=== PATIENT | female | born 1990 | race African-American/Black ===

== ENCOUNTER 2017-10-16 06:33 | Inpatient (IN) | payer OTHER ==
[2017-10-16] MEDS ORDERED: OXYTOCIN 20 UNITS in 0.9% NS 40 UNIT/2,000 ML INFUS.BAG IV ONE (07:51)
[2017-10-16] MEDS ORDERED: CLINDAMYCIN PHOSPHATE 600 MG/4 ML VIAL ONE (07:51)
[2017-10-16] MEDS ORDERED: morphine SULFATE/Preservative Free 0.5 MG/ML (1cc Syringe) ONE (07:55)
[2017-10-16] MEDS ORDERED: DEXAMETHASONE SOD PHOSPHATE 4 MG/1 ML VIAL ONE (07:55)
[2017-10-16] MEDS ORDERED: ePHEDrine SULFATE 50 MG/1 ML AMPULE ONE (07:55)
[2017-10-16] MEDS ORDERED: ELECTROLYTE-148 SOLN 500 ML IV ONE (08:00)
[2017-10-16 08:05] VITALS: BMI 33.8
--- NOTE | 2017-10-16 08:18 | HP ---
Past Medical History - Primary Care Physician PCP:: Verenice Sumner - Admission Chief Complaint: 27yo P0101 @ 38.2wks by first trimester sonogram with Chronic HTN and hx of abruption for repeat c/section History of Present Illness: Problem list: 1. Chronic HTN - off meds in , non compliant with recommended ASA, was on HCTZ/Lisinopril early in 2. Prior c/section - h/o abruption @ 26.6wks @ [facility], LST scar 3. BMI 33 - nl GCT x 2 4. Declined Flu shot 5. Smoking and drinking alcohol early in 6. Tdap 08/27/17 7. Left lateral fibroid 3.5x2.9x4.0 fibroid - Past Medical History Cardiovascular: Yes: HTN (on HCTZ/Lisinopril prior to ) ...: 2 ...Para: 1 ...Term: 0 ...: 1 ...Spon : 0 ...Induced : 0 ...Multiple Gestation: 0 ...LMP: 01/09/17 ... Weeks Gestation by Dates: 40.0 ...EDC by Dates: 10/16/17 ...EDC by Sono: 10/28/17 - Past Surgical History Past Surgical History: Yes: Hx Myomectomy: No Hx Transabdominal Cerclage: No - Smoking History Smoking history: Former smoker (stopped, when found out she is ) - Alcohol/Substance Use Hx Alcohol Use: Yes (stopped, when found out she is ) - Social History History of Recent Travel: No Home Medications - Allergies Allergies/Adverse Reactions: Allergies Allergy/AdvReac Type Severity Reaction Status Date / Time amoxicillin Allergy Unknown Verified 10/16/17 07:32 Penicillins Allergy Unknown Verified 10/16/17 07:32 - Home Medications Home Medications: Ambulatory Orders Vit/Iron Fum/Folic AC [ Tablet] 1 tablet PO DAILY 10/16/17 Physical Exam - Maternity Vital Signs: Vital Signs Temperature 98.6 F 10/16/17 07:31 Pulse Rate 102 H 10/16/17 07:31 Respiratory Rate 18 10/16/17 07:31 Blood Pressure 128/89 10/16/17 07:31 O2 Sat by Pulse Oximetry (%) Assessment/Plan 27yo P0101 @ 38.2wks with Chronic HTN, h/o abruption, intermitent contructions prior c/section, for repeat c/section Consent signed risk of infection, bleeding, injury to internal organs explained Patient NPO Placenta anterior, no evidence of acreta Hct 41.2 from 10/11/17 Anesthesia informed Hemorrhage cart available
[2017-10-16] MEDS ORDERED: ELECTROLYTE-148 SOLN 1,000 ML IV SCH (08:30)
[2017-10-16] MEDS ORDERED: CITRIC ACID/SODIUM CITRATE 30 ML UNIT-DOSE CUP PO ONE (08:30)
[2017-10-16] MEDS ORDERED: OXYTOCIN 10 UNITS/ML VIAL ONE (08:33)
[2017-10-16] MEDS ORDERED: MIDAZOLAM HCL 2 MG/2 ML SINGLE DOSE VIAL ONE (08:58)
[2017-10-16] MEDS ORDERED: ONDANSETRON 4 MG/2 ML VIAL IVPUSH PRN (09:02)
[2017-10-16] MEDS ORDERED: ACETAMINOPHEN 1000 MG/100 ML VIAL (NON FORMULARY) IVPB PRN (09:04)
[2017-10-16] MEDS ORDERED: IBUPROFEN 800 MG/8 ML IJ IVPB PRN ×2 (09:08→09:43)
[2017-10-16 09:18] LABS: ARTERIAL BLD GAS O2 SATURATION 13.1 % (90-98.9); ARTERIAL BLOOD GAS BASE EXCESS -7.1 meq/l (-2-2); ARTERIAL BLOOD GAS PCO2 73.7 mmHg (35-45); ARTERIAL BLOOD GAS PO2 13.6 mmHg (80-100); ARTERIAL BLOOD GAS pH 7.14 (7.35-7.45)
[2017-10-16 09:28] LABS: VENOUS PC02 73.7 mmHg (38-52); VENOUS PH 7.14 (7.32-7.42); VENOUS PO2 13.6 mmHg (28-48)
[2017-10-16] MEDS ORDERED: WITCH HAZEL 50% (TUCKS) 40 PAD/JAR PAD TP PRN (09:43)
[2017-10-16] MEDS ORDERED: oxyCODONE HCL 5 MG TABLET PO PRN (09:43)
[2017-10-16] MEDS ORDERED: BENZOCAINE 20% 57 GM BOTTLE TP PRN (09:43)
[2017-10-16] MEDS ORDERED: METHYLERGONOVINE MALEATE 0.2 MG/1 ML AMP IM PRN (09:43)
[2017-10-16] MEDS ORDERED: diphenhydrAMINE HCL 25 MG CAPSULE (FP) PO PRN (09:43)
[2017-10-16] MEDS ORDERED: BENZOCAINE 28 GM HEMORRHOIDAL OINTMENT PR PRN (09:43)
--- NOTE | 2017-10-16 09:43 | OP ---
Operative Note - Note: Operative Date: 10/16/17 Pre-Operative Diagnosis: 27 yo P 0101 @ 38.2 weeks with h/o prior c/section for placenta abruption, Chronic HTN this , Ex-smoker Operation: Repeat c/section Findings: Viable male infant, APGARs 9/9 Intact placenta Thin lower uterine segment Normal Bl tubes and ovaries no visible fibroids Post-Operative Diagnosis: Same as Pre-op Surgeon: Verenice Sumner Relations Director: Betito Murphy Anesthesiologist/TELEPHONE DIRECTORY DISTRIBUTOR DRIVER: Sharee Schumacher Anesthesia: Spinal Specimens Removed: Placenta Estimated Blood Loss (mls): 700 Drains, Volume Out (mls): 200 Fluid Volume Replaced (mls): 2,000 Operative Report Dictated: Yes
--- NOTE | 2017-10-16 09:43 | PN ---
Delivery - Delivery Section: Repeat, Low Flap Transverse Type of Anesthesia: Spinal Episiotomy/Laceration: None EBL (cc): 700 Delivery, Single - Stages of Labor Placenta: Yes: Expressed - Condition of Infant Special Education Kindergarten Teacher/Senior Brand Manager Present: Yes Gender: Male Weight: 6 lb 6 oz Position: Right, OT - 1 Minute Total Score: 8 5 Minutes Total Score: 9 - Feeding Plan Initial Plan: Exclusive throughout hospitalization Remarks - Remarks Remarks: Repeat c/section performed in a usual fashion Low uterine segment was found to be very thin multiple adhesions of omentum to anterior abdominal wall noted and resected normal pelvic anatomy Viable male , delivered without difficulty, handed to Peds All layers closed patient was homeostatic, brought to recovery
[2017-10-16] MEDS ORDERED: OXYTOCIN 20 UNITS in 0.9% NS 20 UNIT/1,000 ML INFUS.BAG IV SCH (09:45)
[2017-10-16] MEDS ORDERED: ENOXAPARIN NA (PORCINE) 40 MG/0.4 ML DISP.SYRIN SQ SCH (10:00)
[2017-10-16] MEDS ORDERED: IBUPROFEN 800 MG/8 ML IJ IVPB ONE (10:41)
[2017-10-16] MEDS ORDERED: TUBERCULIN PPD 5 TU/0.1ML SYRINGE (IN PATIENT USE ONLY) ID ONE (11:00)
[2017-10-16] MEDS ORDERED: DEXTROSE 5%-LACTATED RINGERS 1,000 ML IV SCH (17:45)
[2017-10-16] MEDS: CLINDAMYCIN 900 MG PREMIX IVPB 900 MG/50 ML BAG IVPB SCH (18:14)
[2017-10-16] MEDS: ENOXAPARIN NA (PORCINE) 40 MG/0.4 ML DISP.SYRIN SQ SCH (20:57)
--- NOTE | 2017-10-16 22:57 | OP ---
DATE OF OPERATION: 10/16/2017 PREOPERATIVE DIAGNOSES: A 27-year-old para 0-1-0-1 at 38.2 weeks with history of prior section for placental abruption and chronic hypertension this , ex-smoker. POSTOPERATIVE DIAGNOSES: A 27-year-old para 0-1-0-1 at 38.2 weeks with history of prior section for placental abruption and chronic hypertension this , ex-smoker. PROCEDURE: Repeat section. FINDINGS: Viable male with Apgars 8 and 9. Intact placenta. Thin lower uterine segment. Normal bilateral tubes and ovaries. No visible fibroids. SURGEON: Verenice Sumner MD CAN HANDLER: Betito Murphy MD ANESTHESIOLOGIST: Sharee Schumacher MD ANESTHESIA: Spinal. DESCRIPTION OF THE OPERATIVE PROCEDURE: After ensuring informed consent, patient was brought to the operating room, where spinal anesthesia was administered. Patient was placed in dorsal supine position with left lateral tilt. Abdomen was prepped and draped in sterile fashion. Pfannenstiel skin incision was made with the scalpel and carried down to the level of fascia with the Bovie cautery. Fascia was incised with Bovie cautery and extended bilaterally with Bovie cautery, dissected off the rectus abdominis muscle with the Bovie cautery. Rectus muscle was split in the midline. Peritoneum was identified, tented, and entered, with good visualization of underlying organs, bluntly and extended bilaterally with Bovie cautery. The lower edge of the Ash was used to retract the bladder. Both gutters were packed with laparotomy sponges. Vesicouterine peritoneum was identified, tented, and dissected off the lower uterine segment and retracted with the [place]. Lower segment transverse incision was made with the scalpel and extended bilaterally with bandage scissors. 's head was identified in occiput transverse position; delivered atraumatically. Baby's nose and mouth suctioned on the abdomen. The rest of the 's body delivered atraumatically. Cord clamped and cut. Infant handed to burial agent. Placenta was removed without any difficulty. It was expressed from the uterus. Uterus was cleared of clots and debris. Cervix was opened with ring forceps to allow for the uterus to express. Uterus was repaired with 0 Biosyn in running, locking fashion. A 2nd imbricating layer was created as well to assure hemostasis. The abdomen was cleared of clots and debris. Normal tubes and ovaries were visualized. The peritoneum was repaired with 0 Biosyn. Muscle was reapproximated in the midline with 0 Biosyn. Fascia was closed with 0 Vicryl from each angle, sutures meeting at the midline. The subcutaneous tissue was closed with 2-0 Vicryl and skin was closed with 4-0 Biosyn. Excellent hemostasis was achieved. ESTIMATED BLOOD LOSS; 700 mL. URINE OUTPUT: 200 mL. INTRAVENOUS FLUIDS: The patient received 2000 mL of IV fluids. DISPOSITION: The patient was brought stable to the recovery room. Daysi [id number]
[2017-10-17] MEDS: CLINDAMYCIN 900 MG PREMIX IVPB 900 MG/50 ML BAG IVPB SCH ×2 (01:40→09:15)
[2017-10-17] MEDS: IBUPROFEN 600 MG TABLET (FP) PO PRN ×2 (06:18→20:23)
--- NOTE | 2017-10-17 08:34 | PN ---
Post Progress Note - Subjective Subjective: No complaints. No flatus yet, no nausea or vomiting Post Day: 1 Type of Delivery: Repeat C/S Vital Signs: Vital Signs Temperature 98.0 F 10/17/17 06:00 Pulse Rate 82 10/17/17 06:00 Respiratory Rate 18 10/17/17 06:00 Blood Pressure 86/62 10/17/17 06:00 O2 Sat by Pulse Oximetry (%) 100 10/16/17 11:00 Breast Exam: Yes: Soft Uterus: Yes: Fundus Firm, Fundus @ umbilicus, Non-tender Incision: Yes: Dressing dry and intact Abdomen/GI: Yes: Abdomen soft, Tolerating PO Lochia: Yes: Rubra Lochia, amount: Small Extremities: Yes: Calves non-tender Perineum: Yes: Intact Activity: Ambulating Assessment/Plan 27yo P2 s/p repeat LT C/S, doing well stable, afebrile. Labs are pending. care instructions reviewed. Continue routine postop care. Ambulation encouraged
[2017-10-17 09:04] LABS: BASO % 0.3 % (0-2.0); EOS % 0.3 % (0-4.5); HEMATOCRIT 34.6 % (32.4-45.2); HEMOGLOBIN 11.5 GM/dL (10.7-15.3); LYMPH % 18.4 % (8-40); MCH 28.2 pg (25.7-33.7); MCHC 33.2 g/dl (32.0-36.0); MEAN PLT VOLUME 9.3 fl (7.5-11.1); MONO % 9.7 % (3.8-10.2); NEUT % 71.3 % (42.8-82.8); PLATELET COUNT 182 K/MM3 (134-434); RBC 4.08 M/mm3 (3.60-5.2); RDW 15.5 % (11.6-15.6); WHITE BLOOD COUNT 12.7 K/mm3 (4.0-10.0)
[2017-10-17] MEDS ORDERED: BISACODYL 10 MG SUPP.RECT RC PRN (09:44)
[2017-10-17] MEDS: SIMETHICONE 80 MG TAB.CHEW (FP) PO PRN ×2 (10:47→16:38)
[2017-10-17] MEDS: ACETAMINOPHEN 325 MG TABLET (FP) PO PRN ×3 (10:47→20:22)
[2017-10-17] MEDS: oxyCODONE HCL 5 MG TABLET PO PRN ×2 (10:48→16:36)
--- NOTE | 2017-10-17 14:11 | PN ---
Progress Note (short form) - Note Progress Note: Patient seen. Doing well on POD#1 after repeat c-sec under spinal anesthesia. Dilaudid ARMORER TECHNICIAN was d/c'd earlier. Today pt being succefully rxd with oxycodone prn. No sig N/V/pruritis/sedation. No recall or anesthesia related complications. Plan: cont present managment and recall prn
[2017-10-17] MEDS: ENOXAPARIN NA (PORCINE) 40 MG/0.4 ML DISP.SYRIN SQ SCH (20:22)
[2017-10-18] MEDS: IBUPROFEN 600 MG TABLET (FP) PO PRN ×4 (04:48→23:19)
[2017-10-18] MEDS: SIMETHICONE 80 MG TAB.CHEW (FP) PO PRN ×4 (04:48→23:19)
[2017-10-18] MEDS: ACETAMINOPHEN 325 MG TABLET (FP) PO PRN ×4 (04:49→23:19)
--- NOTE | 2017-10-18 06:59 | PN ---
Post Progress Note - Subjective Subjective: Patient without acute complaints. Tolerating clears, without complaints of nausea or vomiting. ambulating without issue Pain well controlled with oral medication Denies fevers or chills. Breast and bottle feeding Denies chest pain, shortness of breath Denies flatus. Post Day: 2 Type of Delivery: Repeat C/S Vital Signs: Vital Signs Temperature 98.1 F 10/17/17 21:00 Pulse Rate 91 H 10/17/17 21:00 Respiratory Rate 18 10/17/17 21:00 Blood Pressure 115/63 10/17/17 21:00 O2 Sat by Pulse Oximetry (%) 100 10/16/17 11:00 Breast Exam: Yes: Soft Uterus: Yes: Fundus Firm, Fundus below umbilicus Incision: Yes: Sutures intact. No: Redness, Oozing Abdomen/GI: Yes: Abdomen soft, Tender (incisional), Passing flatus, Tolerating PO. No: Abdominal Distention Lochia: Yes: Rubra, Serosa Lochia, amount: Small Extremities: Yes: Calves non-tender, Edema Activity: Ambulating - Labs Labs: CBC WBC 12.7 K/mm3 (4.0-10.0) H D 10/17/17 08:00 RBC 4.08 M/mm3 (3.60-5.2) 10/17/17 08:00 Hgb 11.5 GM/dL (10.7-15.3) D 10/17/17 08:00 Hct 34.6 % (32.4-45.2) D 10/17/17 08:00 MCV 85.0 fl (80-96) 10/17/17 08:00 MCH 28.2 pg (25.7-33.7) 10/17/17 08:00 MCHC 33.2 g/dl (32.0-36.0) 10/17/17 08:00 RDW 15.5 % (11.6-15.6) 10/17/17 08:00 Plt Count 182 K/MM3 (134-434) 10/17/17 08:00 MPV 9.3 fl (7.5-11.1) 10/17/17 08:00 Neutrophils % 71.3 % (42.8-82.8) 10/17/17 08:00 Lymphocytes % 18.4 % (8-40) D 10/17/17 08:00 Monocytes % 9.7 % (3.8-10.2) 10/17/17 08:00 Eosinophils % 0.3 % (0-4.5) 10/17/17 08:00 Basophils % 0.3 % (0-2.0) 10/17/17 08:00 Assessment/Plan 27 yo POD # 2 s/p repeat CD, afebrile, vital signs stable, doing well 1. Continue routine postoperative care. 2. Encourage ambulation 3. Continue oral pain medication 4. Awaiting flatus 5. Will advance diet as tolerated 6. Anticipate discharge home postoperative day #3 or #4
[2017-10-18] MEDS: ENOXAPARIN NA (PORCINE) 40 MG/0.4 ML DISP.SYRIN SQ SCH (20:52)
[2017-10-18] MEDS ORDERED: SENNOSIDES/DOCUSATE COMBO (SENNA PLUS) TABLET (UD) PO PRN (22:00)
--- NOTE | 2017-10-19 07:49 | PN ---
Progress Note (short form) - Note Progress Note: ,s/p c/s doing well, ambulating, no excess vaginal bleeding Last Vital Signs Temp Pulse Resp BP Pulse Ox 98.0 F 88 18 129/79 100 10/18/17 22:00 10/18/17 22:00 10/18/17 22:00 10/18/17 22:00 10/16/17 11:00 abdomen soft, no distension, no cva incision dry, clean no calf tenderness plan ambulate,, cbc, advance diet
[2017-10-19 08:07] LABS: BASO % 0.6 % (0-2.0); EOS % 1.5 % (0-4.5); HEMATOCRIT 34.8 % (32.4-45.2); HEMOGLOBIN 11.6 GM/dL (10.7-15.3); LYMPH % 25.8 % (8-40); MCH 28.9 pg (25.7-33.7); MCHC 33.4 g/dl (32.0-36.0); MEAN CELL VOLUME 86.3 fl (80-96); MEAN PLT VOLUME 9.5 fl (7.5-11.1); MONO % 8.3 % (3.8-10.2); NEUT % 63.8 % (42.8-82.8); PLATELET COUNT 205 K/MM3 (134-434); RBC 4.03 M/mm3 (3.60-5.2); RDW 15.7 % (11.6-15.6)
[2017-10-19 09:39] VITALS: BP 131/83; PULSE 77; TEMP 97.6
--- NOTE | 2017-10-19 11:10 | DS ---
Physical Exam-CLINICAL NURSING ASSISTANT Vital Signs: Vital Signs Temperature 97.6 F 10/19/17 09:33 Pulse Rate 77 10/19/17 09:33 Respiratory Rate 20 10/19/17 09:33 Blood Pressure 131/83 10/19/17 09:33 O2 Sat by Pulse Oximetry (%) 100 10/16/17 11:00 Constitutional: Yes: Well Nourished, No Distress, Calm Eyes: Yes: WNL, Conjunctiva Clear, EOM Intact HENT: Yes: WNL, Atraumatic, Normocephalic Neck: Yes: WNL, Supple, Trachea Midline Cardiovascular: Yes: WNL, Regular Rate and Rhythm Respiratory: Yes: WNL, Regular, CTA Bilaterally Gastrointestinal: Yes: WNL ...Rectal Exam: Yes: WNL Renal/: Yes: WNL ....Post : Yes: Uterus firm, Uterus non-tender, Slight lochia rubra Breast(s): Yes: WNL Musculoskeletal: Yes: WNL Extremities: Yes: WNL Edema: No Integumentary: Yes: WNL Wound/Incision: Yes: Clean/Dry, Well Approximated, Sutures Intact Neurological: Yes: WNL, Alert, Oriented ...Motor Strength: WNL Psychiatric: Yes: WNL, Alert, Oriented Labs: CBC, BMP 10/19/17 06:30 Delivery - Delivery Section: Repeat, Low Flap Transverse Type of Anesthesia: Spinal Episiotomy/Laceration: None EBL (cc): 700 Delivery, Single - Stages of Labor Date of Delivery: 10/16/17 Time of Delivery: 08:49 Time Placenta Delivered: 08:50 Placenta: Yes: Expressed - Condition of Enhanced Environmental Operator/Price Economist Present: Yes Gender: Male Weight: 6 lb 6 oz Position: Right, OT Total Hours ROM (Hrs/Mins): 1 min - 1 Minute Total Score: 8 5 Minutes Total Score: 9 - Feeding Plan Initial Plan: Exclusive throughout hospitalization Discharge Summary Reason For Visit: Procedures: Principal: repeat LST c/s - Instructions Diet, Activity, Other Instructions: regular diet, follow up office 1 week, if pain, heavy bleeding , fever call office Referrals: Verenice Sumner MD [Staff Physician] - - Home Medications Comprehensive Discharge Medication List: Ambulatory Orders Vit/Iron Fum/Folic AC [ Tablet] 1 tablet PO DAILY 10/16/17 Ibuprofen [Motrin -] 600 mg PO TID #90 tablet 10/19/17
--- NOTE | 2017-10-24 13:27 | PATH ---
Surgical Pathology Report Patient Name: NIKOLAS CUMMINS Med. Rec. #: [id number] /Age/Gender: 1990 (Age: 27) / F Account: [id number] Location: [facility] A[facility]ONOM[facility] Taken: 10/16/2017 Received: 10/18/2017 Reported: 10/24/2017 Physicians: Verenice Sumner M.D. Specimen(s) Received PLACENTA Clinical History , previous 2016 at 26.6 weeks, abruption, history of uterine fibroids, ovarian cysts History of chronic hypertension, VTOPx1 Final Diagnosis PLACENTA, DELIVERY: THIRD TRIMESTER PLACENTA WITH INTERVILLOUS HEMATOMA, 3 VESSEL UMBILICAL CORD, AND UNREMARKABLE PLACENTAL MEMBRANES. Electronically Signed Bradley Stark M.D. Gross Description The specimen is received fresh labeled placenta and is a 496 gram, 14.0 x 12.5 x 3.5 cm. placenta with attached membranes and umbilical cord. The attached membranes are santiago, translucent with focal opacities and insert marginally. The umbilical cord measures 26 cm. in length and averages 1.3 cm. in diameter. The cord inserts eccentrically, 2.5 cm. to the nearest margin. No true knots or strictures are identified. Cut surface of the umbilical cord reveals 3 vessels. The surface is garcia-blue with minimal fibrin deposition and appropriate caliber vessels. The maternal surface is red-brown and intact. Sectioning reveals a 1.1 cm in greatest dimension intraparenchymal lesion. The remaining placental parenchyma is red-brown and spongy. [place] sections are submitted in 4 cassettes as follows: 1-membrane roll and umbilical cord; 2-lesion; 3-4-full thickness sections of placenta. 10/19/2017 [facility]10/19/2017
== END 2017-10-19 12:30 | disposition home or self-care (01) | DRG 540 ==
LOC: JLDR 06:33 → J3W 11:27
PROVIDERS: ADMIT Obstetrics & Gynecology; ATTEND Obstetrics & Gynecology
PROC: 10D00Z1 Extraction of Products of Conception, Low, Open Approach (ICD-10-PCS; principal; 2017-10-16)
DX: O34.211 Maternal care for low transverse scar from previous cesarean delivery (principal); O10.02 Pre-existing essential hypertension complicating childbirth; Z87.891 Personal history of nicotine dependence; Z91.14 Patient's other noncompliance with medication regimen; Z3A.38 38 weeks gestation of pregnancy; Z37.0 Single live birth
CPT/HCPCS: 36415; 36600; 82803; 85025

== ENCOUNTER 2018-12-08 00:51 | Emergency (ER) | payer OTHER ==
[2018-12-08] MEDS ORDERED: FLUORESCEIN NA 1 EA STRIP OU ONE (01:07)
[2018-12-08] MEDS ORDERED: TETRACAINE 0.5% HCL 0.6ML DROPPER.BOTTLE OU ONE (01:07)
[2018-12-08] MEDS ORDERED: FLUORESCEIN NA 1 EA STRIP ONE (01:14)
[2018-12-08] MEDS ORDERED: TETRACAINE 0.5% OPHTH SOLN 2 ML BOTTLE ONE (01:14)
--- NOTE | 2018-12-08 01:39 | PDOC ---
History of Present Illness - General Chief Complaint: Eye Problem Stated Complaint: LEFT EYE SWELLING Time Seen by Provider: 12/08/18 00:59 History Source: Patient Exam Limitations: No Limitations - History of Present Illness Initial Comments: 12/08/18 01:56 28 yo female pmh HTN presents to the ED for sudden onset left eye redness and drainage. Pt states around 9 pm she noted burning pain in her left eye, noticed redness and yellow pus draining from the eye. Denies itchiness, sick contacts, anyone with similar symptoms, contact lens use, F/c/n/v. Past History - Past Medical History Allergies/Adverse Reactions: Allergies Allergy/AdvReac Type Severity Reaction Status Date / Time amoxicillin Allergy Unknown Verified 12/08/18 01:11 Penicillins Allergy Unknown Verified 12/08/18 01:11 Home Medications: Ambulatory Orders Vit/Iron Fum/Folic AC [ Tablet] 1 tablet PO DAILY 10/16/17 Ibuprofen [Motrin -] 600 mg PO TID #90 tablet 10/19/17 Dextran 70/Hypromellose [Artificial Tears] 1 each OP QID #1 droperette 12/08/18 Polymyxin B Sulfate/Tmp [Polytrim Opthalmic Solution -] 1 drop OP Q3H #1 drops 12/08/18 Asthma: No Cancer: No Cardiac Disorders: No COPD: No Diabetes: No HTN: Yes (no meds at this time) Seizures: No Thyroid Disease: No - Immunization History Immunization Up to Date: Yes - Suicide/Smoking/Psychosocial Hx Smoking History: Never smoked Have you smoked in the past 12 months: No Information on smoking cessation initiated: No Hx Alcohol Use: No Drug/Substance Use Hx: No Hx Substance Use Treatment: No Review of Systems - Review of Systems Constitutional: No: Chills, Fever HEENTM: Yes: Eye Pain (burning), Other (yellow discharge from the left eye). No : Blurred Vision, Double Vision Respiratory: No: Shortness of Breath Cardiac (ROS): No: Chest Pain ABD/GI: No: Nausea, Vomiting Integumentary: No: Change in Color Neurological: No: Headache, Numbness, Paresthesia *Physical Exam - Vital Signs Last Vital Signs Temp Pulse Resp BP Pulse Ox 98.6 F 80 18 126/79 99 12/08/18 01:11 12/08/18 01:11 12/08/18 01:11 12/08/18 01:11 12/08/18 01:11 - Physical Exam General Appearance: Yes: Nourished, Appropriately Dressed. No: Apparent Distress HEENT: positive: EOMI, HIWOT, Other (yellow pus draining from left eye with conjunctivitis ). negative: Photophobia Neck: positive: Supple Respiratory/Chest: positive: Lungs Clear, Normal Breath Sounds. negative: Accessory Muscle Use, Crackles, Wheezing Cardiovascular: positive: Regular Rhythm, Regular Rate, S1, S2. negative: Edema , JVD, Murmur Vascular Pulses: Dorsalis-Pedis (R): 4+, Doralis-Pedis (L): 4+ Gastrointestinal/Abdominal: positive: Normal Bowel Sounds, Flat, Soft Neurologic: positive: Fully Oriented, Alert, Normal Mood/Affect, Normal Response Moderate Sedation - Procedure Monitoring Vital Signs: Procedure Monitoring Vital Signs Temperature 98.6 F 12/08/18 01:11 Pulse Rate 80 12/08/18 01:11 Respiratory Rate 18 12/08/18 01:11 Blood Pressure 126/79 12/08/18 01:11 O2 Sat by Pulse Oximetry (%) 99 12/08/18 01:11 ED Treatment Course - Medications Given in the ED: ED Medications Discontinued Medications Generic Name Dose Route Start Last Admin Trade Name Freq PRN Reason Stop Dose Admin Fluorescein Sodium 1 ea 12/08/18 01:07 12/08/18 01:16 Fluorets - OU 12/08/18 01:08 1 ea ONCE ONE Administration Tetracaine HCl 1 drop 12/08/18 01:07 12/08/18 01:16 Tetravisc 0.5% Eye Drops - OU 12/08/18 01:08 1 drop ONCE ONE Administration Medical Decision Making - Medical Decision Making 12/08/18 03:25 28 yo female presents to ED with left eye redness, burning pain and yellow discharge Vitals wnl Tetracaine 2 drops applied to left eye Flouricine applied and eye visualized under black light No lacerations/abrasions noted Visual acuity 20/40 bilaterally Sent polytrim and artificial tears to pts pharmacy Strict return precautions given. Pt understands and agrees with plan safe for DC home *DC/Admit/Observation/Transfer Diagnosis at time of Disposition: [place] eye - Discharge Dispostion Disposition: HOME Condition at time of disposition: Stable Decision to Admit order: No - Prescriptions Prescriptions: Dextran 70/Hypromellose [Artificial Tears] 1 each OP QID #1 droperette Polymyxin B Sulfate/Tmp [Polytrim Opthalmic Solution -] 1 drop OP Q3H #1 drops - Referrals - Patient Instructions Printed Discharge Instructions: DI for Conjunctivitis Additional Instructions: Please make an appointment with your Primary Doctor within the next 48 hours. Use the eye drops and Polytrim as prescribed that was sent to your pharmacy. Make sure to wash your hands constantly and throw out any current eye care products. The redness and drainage may spread to the other eye, you can start using the drops in that eye as well. Return to the ER for new or concerning symptoms including but not limited to: changes in vision, severe eye pain, high fevers. Thank you - Post Discharge Activity
--- NOTE | 2018-12-08 01:44 | PDOC ---
Attending Attestation - Resident Resident Name: AlKelvin - ED Attending Attestation I have performed the following: I have examined & evaluated the patient, The case was reviewed & discussed with the resident, I agree w/resident's findings & plan, Exceptions are as noted - HPI HPI: 12/08/18 01:39 28 year old female c/ pmh HTN p/w left eye irritation and redness since today. Denies sick contacts or recent travels. Noticed some discharged and red eye of left eye. Does not wear contact lenses. No changes in visual acuity. Reports some eye irritation. - Physicial Exam PE: 12/08/18 01:40 GENERAL: Awake, alert, and fully oriented, in no acute distress HEAD: No signs of trauma EYES: PERRLA, EOMI OD: 20/40 clear sclera with no drainage or erythema OS: 20/40 injected left eye with mild drainage. No fluorescein uptake. ENT: Auricles normal inspection, hearing grossly normal, nares patent NECK: Normal ROM, supple, EXTREMITIES: Normal range of motion, no edema. No clubbing or cyanosis. No cords, erythema, or tenderness NEUROLOGICAL: Cranial nerves II through XII grossly intact. Normal speech, normal gait SKIN: Warm, Dry, normal turgor, no rashes or lesions noted. - Medical Decision Making 12/08/18 01:44 Vital Signs Temp Pulse Resp BP Pulse Ox 98.6 F 80 18 126/79 99 12/08/18 01:11 12/08/18 01:11 12/08/18 01:11 12/08/18 01:11 12/08/18 01:11 Findings are consistent with likely viral conjunctivitis. Artificial tears Polytrim opthalmic drops x 1 week. Follow up with optho Strict hand hygiene.
[2018-12-08 01:54] VITALS: BP 126/79; PULSE 80; TEMP 98.6; BMI 33.5
== END 2018-12-08 01:47 | disposition home or self-care (01) ==
LOC: JER 00:51
DX: H10.32 Unspecified acute conjunctivitis, left eye (principal); I10 Essential (primary) hypertension
CPT/HCPCS: 99281-25

== ENCOUNTER 2019-05-20 16:16 | Emergency (ER) | payer OTHER ==
--- NOTE | 2019-05-20 16:21 | PDOC ---
Rapid Medical Evaluation Chief Complaint: Vaginal Sxs Time Seen by Provider: 05/20/19 16:20 Medical Evaluation: Allergies Allergy/AdvReac Type Severity Reaction Status Date / Time amoxicillin Allergy Unknown Verified 12/08/18 01:11 Penicillins Allergy Unknown Verified 12/08/18 01:11 05/20/19 16:20 HPI 17 weeks gravid lost mucoud plug PE: No gross deficits ORDERS: US Discharge Disposition - Diagnosis Cervical mucus plug of passed - Referrals - Patient Instructions - Post Discharge Activity
[2019-05-20 16:24] VITALS: TEMP 99.1; BMI 32.9
--- NOTE | 2019-05-20 18:13 | PDOC ---
History of Present Illness - General Chief Complaint: Vaginal Sxs Stated Complaint: LOST OF MUCUS Time Seen by Provider: 05/20/19 16:20 History Source: Patient Exam Limitations: No Limitations - History of Present Illness Initial Comments: 29 yo A3 F pmh HTN presenting at 17 weeks after passing a thick white mucus globule from the vaginal vault. Denies vaginal bleeding, cramps, or pain but does state slight discomfort in the region. Endorses having one self resolving episode of palpitations, dizziness, and seeing "floaters" for 15 minutes last night. Back at baseline w/ no neurologic sx. Endorsing mild SOB, chills, sneezing, and rhinorrhea for 1.5 weeks. 2 past c-sections. PMH: HTN; known cervical polyp MEDS: methyl-dopa Allergy: PCN and amoxicillin INSTRUCTOR PSYCHIATRIC AIDE: Dr. Verenice Sumner Denies etoh and tobacco Past History - Past Medical History Allergies/Adverse Reactions: Allergies Allergy/AdvReac Type Severity Reaction Status Date / Time amoxicillin Allergy Unknown Verified 05/20/19 16:23 Penicillins Allergy Unknown Verified 05/20/19 16:23 Home Medications: Ambulatory Orders Vit/Iron Fum/Folic AC [ Tablet] 1 tablet PO DAILY 10/16/17 Ibuprofen [Motrin -] 600 mg PO TID #90 tablet 10/19/17 Dextran 70/Hypromellose [Artificial Tears] 1 each OP QID #1 droperette 12/08/18 Polymyxin B Sulfate/Tmp [Polytrim Opthalmic Solution -] 1 drop OP Q3H #1 drops 12/08/18 Asthma: No Cancer: No Cardiac Disorders: No COPD: No Diabetes: No HTN: Yes (no meds at this time) Seizures: No Thyroid Disease: No - Immunization History Immunization Up to Date: Yes - Suicide/Smoking/Psychosocial Hx Smoking History: Never smoked Have you smoked in the past 12 months: No Hx Alcohol Use: Yes (stopped, when found out she is ) Drug/Substance Use Hx: No Hx Substance Use Treatment: No Review of Systems - Review of Systems Able to Perform ROS?: Yes Comments:: DENIES n/v/d/dysuria, chest pain, numbness/tingling/weakness, poor PO intake. See hpi for positives Is the patient limited Welsh proficient: No *Physical Exam - Vital Signs Last Vital Signs Temp Pulse Resp BP Pulse Ox 99.1 F 111 H 18 153/101 H 96 05/20/19 16:20 05/20/19 16:20 05/20/19 16:20 05/20/19 16:20 05/20/19 16:20 - Physical Exam Comments: GEN: Well appearing, NAD, comfortable. AAOx3 HEENT: NC/AT, EOMI, PERRLA. Moist mucousa. No asymmetry. CV: S1/S2, RRR, no m/r/g LUNG: CTAB, no wheezes, crackles, rales, rhonchi. GI: soft, ndnt, +BS, no guarding, no rebound. Neg CVAT b/l. Pelvic: No discharge, bleeding, and atrophy on inspection. Cervix visualized - closed with no active bleeding or discharge. A cervical polyp was visualized. There was scant physiologic discharge but no blood. NEURO:moving all extremities well; ambulating well. PSYCH: normal mood and affect SKIN: normal turgor, warm, dry ED Treatment Course - LABORATORY CBC & Chemistry Diagram: 05/20/19 19:00 05/20/19 19:00 Medical Decision Making - Medical Decision Making 05/20/19 18:06 29 yo F @ 17 weeks presenting after passing a thick white mucus plug from the vaginal vault today. Had an episode of seeing "floaters," palpitations , and dizziness yesterday that self-resolved in 15 mins. Exam demonstrated a closed cervix w/o bleeding. There was a known cervical polyp that was visualized. Concern re: pre-eclampsia since she is close to 20 weeks. - CBC, CMP, coags, Mg - UA/UC - reassess, repeat VS - will likely dispo home w/ close Patient Registration Rep f/u 05/20/19 20:33 Discussed UA results with patient - she states it was not collected clean catch , likely contaminated. Declined to repeat at this time but understands increased risks associated with UTI during . She is asymptomatic denying dysuria and hematuria. We advised for the patient to have close follow up with her INSTRUCTOR PSYCHIATRIC AIDE regarding this visit. Repeat VS - BP 140s / 90s, HR 80s Will discharge home w/ return precautions and close OBGYN f/u. *DC/Admit/Observation/Transfer Diagnosis at time of Disposition: Vaginal discharge during Qualifiers: Trimester: second trimester Qualified Code(s): O26.892 - Other specified related conditions, second trimester Hypertension Qualifiers: Hypertension type: unspecified Qualified Code(s): I10 - Essential (primary) hypertension - Discharge Dispostion Disposition: HOME Condition at time of disposition: Stable - Referrals Referrals: Gee Nguyen MD [Primary Care Provider] - - Patient Instructions Printed Discharge Instructions: DI for Vaginal Discharge Additional Instructions: You were evaluated in the Emergency Department. Your lab work and ultrasound were reassuring. The ultrasound report was provided to you. Continue to take your home medications as prescribed. Please follow up with your INSTRUCTOR PSYCHIATRIC AIDE regarding today's visit THIS WEEK. Return to the Emergency Department if you experience any of the following: - vaginal spotting or bleeding - shortness of breath, chest pain - fainting, seizures, severe headache, numbness, tingling, weakness - ANYTHING that concerns you - Post Discharge Activity
[2019-05-20 19:34] LABS: INR 0.94 (0.83-1.09); PROTHROMBIN TIME (PATIENT) 11.1 SEC (9.7-13.0)
[2019-05-20 19:36] LABS: ALBUMIN 3.3 g/dl (3.4-5.0); BILIRUBIN,TOTAL 0.2 mg/dL (0.2-1); BLOOD UREA NITROGEN 5.4 mg/dL (7-18); CALCIUM 9.3 mg/dL (8.5-10.1); CREATININE 0.6 mg/dL (0.55-1.3); POTASSIUM 4.1 mmol/L (3.5-5.1); TOT PROT 7.3 g/dl (6.4-8.2)
[2019-05-20 19:37] LABS: BASO % 0.2 % (0-2.0); EOS % 1.5 % (0-4.5); HEMATOCRIT 36.3 % (32.4-45.2); HEMOGLOBIN 12.5 GM/dL (10.7-15.3); LYMPH % 33.8 % (8-40); MCH 29.5 pg (25.7-33.7); MCHC 34.5 g/dl (32.0-36.0); MEAN CELL VOLUME 85.4 fl (80-96); MEAN PLT VOLUME 9.7 fl (7.5-11.1); MONO % 9.2 % (3.8-10.2); NEUT % 55.3 % (42.8-82.8); PLATELET COUNT 214 K/MM3 (134-434); RBC 4.25 M/mm3 (3.60-5.2); RDW 13.8 % (11.6-15.6)
[2019-05-20 19:52] LABS: EPI CELLS 8.9 /HPF (0-5/HPF); HYALINE CASTS 9 /lpf (0-8); URINE APPEARANCE CLEAR; URINE BACTERIA 45.4 /hpf (NEGATIVE); URINE BILIRUBIN NEGATIVE (NEGATIVE); URINE COLOR YELLOW; URINE GLUCOSE (UA) NEGATIVE (NEGATIVE); URINE KETONE NEGATIVE (NEGATIVE); URINE LEUK ESTERASE 1+ (NEGATIVE); URINE NITRITE NEGATIVE (NEGATIVE); URINE PROTEIN NEGATIVE (NEGATIVE); URINE RBC 1 /hpf (0-4); URINE WBC 12 /hpf (0-5)
--- NOTE | 2019-05-20 20:15 | PDOC ---
Documentation entered by Shikha Gramajo SCRIBE, acting as scribe for Grant Fleming MD. Grant Fleming MD: This documentation has been prepared by the Avila velarde Brenda, SCRIBE, under my direction and personally reviewed by me in its entirety. I confirm that the documentation accurately reflects all work, treatment, procedures, and medical decision making performed by me. Attending Attestation - Resident Resident Name: Mo Salazar - ED Attending Attestation I have performed the following: I have examined & evaluated the patient, The case was reviewed & discussed with the resident, I agree w/resident's findings & plan, Exceptions are as noted - HPI HPI: 05/20/19 19:27 The patient is a 29 year old female (A3), 17 weeks , with a significant PMH of HTN and a known existing cervical polyp who presents to the emergency department after having an episode of a thick white discharge coming from her vagina. Patient does endorse slight discomfort in the region, however denies pain or bleeding. The patient also endorses a headache, sneezing and rhinorrhea but attributes that to her sinus infection. However, she also notes an episode of palpitations, accompanied by 15 minutes of visualizing floaters last night. Patient also reports that her first was , delivering her daughter at 26 weeks. Next OB Appointment is Sunday (05/26/19) The patient denies abdominal cramping. Denies chest pain.. Denies fever, nausea, vomiting, diarrhea and constipation. Denies dysuria, frequency, urgency and hematuria. Allergies: Penicillin and amoxicillin Past surgical history: 2 C-sections Social history: Alcohol use, stopped when she found out she was PCP: Gee Nguyen ASSISTANT ENGINEER: Verenice Sumner 05/20/19 19:56 - Physicial Exam PE: 05/20/19 19:55 GENERAL: The patient is awake, alert, and fully oriented, Nontoxic - in no acute distress. HEAD: Normocephalic, atraumatic. ABDOMEN: Soft, nontender, gravid abd, No guarding, no rebound. No CVA tenderness EXTREMITIES: Normal range of motion, NEUROLOGICAL: No facial assymetry, Normal speech, PSYCH: Normal mood, normal affect. SKIN: Warm, Dry, normal turgor, - Medical Decision Making 05/20/19 18:52 29y F hx of htn, presents with complaint of passing vaginal mucus earlier today but is otherwise asypmtmatic. pt notes she had an episode of palpitations lsat night but has since resolved without complaints of fever, abd pain, vag bleeding, n/v, cp, sob. chief of staff doctor exam as documented by resident pts vitals noted for hypertension - but pt notes she is usually othewis fairly well managed in the 130s sbp. no current headache, vision changes will ck labs to screen for preeclampsia/proteinuria will recheck her vitals us to eval for viability 05/20/19 20:00 pts US noted for IUP labs reviewed bp improved pts UA with bacturia, but was not a clean catch. as pt has no urinary sypmtms and this was not a clean catch (verified with patient), we watned to repeat but pt refuses - states she needs to go home. will have pt fu with obgyn return precautions were discussed
[2019-05-20 20:33] VITALS: BP 140/93; PULSE 82
== END 2019-05-20 20:35 | disposition home or self-care (01) ==
LOC: JER 16:16
DX: O26.892 Other specified pregnancy related conditions, second trimester (principal); Z3A.17 17 weeks gestation of pregnancy; I10 Essential (primary) hypertension
CPT/HCPCS: 36415; 76801-TC; 80053; 81003; 83735; 84702; 85025; 85610; 85730; 87086; 99282-25

== ENCOUNTER 2019-10-21 07:25 | Inpatient (IN) | payer OTHER ==
[~2019-10-21 07:25] MED LIST: CITRIC ACID/SODIUM CITRATE 30 ML UNIT-DOSE CUP PO ONE; ELECTROLYTE-148 SOLN 1,000 ML IV SCH
[2019-10-21 08:06] VITALS: BMI 34.0
[2019-10-21] MEDS ORDERED: ELECTROLYTE-148 SOLN 1,000 ML IV SCH ×2 (08:25→08:45)
[2019-10-21] MEDS ORDERED: CITRIC ACID/SODIUM CITRATE 30 ML UNIT-DOSE CUP PO ONE (08:32)
[2019-10-21] MEDS ORDERED: BENZOCAINE 28 GM HEMORRHOIDAL OINTMENT PR PRN (08:32)
[2019-10-21] MEDS ORDERED: oxyCODONE HCL 5 MG TABLET PO PRN (08:32)
[2019-10-21] MEDS ORDERED: METHYLERGONOVINE MALEATE 0.2 MG/1 ML AMP IM PRN (08:32)
[2019-10-21] MEDS ORDERED: WITCH HAZEL 50% (TUCKS) 40 PAD/JAR PAD TP PRN (08:32)
[2019-10-21] MEDS ORDERED: diphenhydrAMINE HCL 25 MG CAPSULE (FP) PO PRN (08:32)
[2019-10-21] MEDS ORDERED: BENZOCAINE 20% 57 GM BOTTLE TP PRN (08:32)
--- NOTE | 2019-10-21 08:32 | HP ---
Past Medical History - Primary Care Physician PCP:: Verenice Sumner - Admission Chief Complaint: 29yo P2 @ 39.3 wks for # 2 repeat c/section, no VB, no LOF, + FM, occasonal contructions History of Present Illness: 1. Essential HTN on Methyldopa in 2. h/o Abruption @ 26.6wks, 1st 3. BMI 33 - nl GCT 4. Large cervical polyp found this , stable 5. Flu and TDap this 6. Former smoker 7. Allergy to PCN/Amoxicillin History Source: Patient, Medical Record Limitations to Obtaining History: No Limitations - Past Medical History Cardiovascular: Yes: HTN (on HCTZ/Lisinopril prior to ) ...: 3 ...Para: 2 ...Term: 1 ...: 1 ...Spon : 0 ...Induced : 0 ...LMP: 01/10/19 ... Weeks Gestation by Dates: 39.3 ...EDC by Dates: 10/25/19 ...EDC by Sono: 10/25/19 - Past Surgical History Past Surgical History: Yes: Hx Myomectomy: No Hx Transabdominal Cerclage: No - Smoking History Smoking history: Never smoked Have you smoked in the past 12 months: No - Alcohol/Substance Use Hx Alcohol Use: No - Social History History of Recent Travel: No Home Medications - Allergies Allergies/Adverse Reactions: Allergies Allergy/AdvReac Type Severity Reaction Status Date / Time amoxicillin Allergy Unknown Verified 10/21/19 07:47 Penicillins Allergy Unknown Verified 10/21/19 07:47 - Home Medications Home Medications: Ambulatory Orders Vit/Iron Fum/Folic AC [ Tablet] 1 tablet PO DAILY 10/16/17 Methyldopa [Aldomet -] 250 mg PO DAILY 10/20/19 Methyldopa 500 mg PO DAILY 10/21/19 Review of Systems - Review of Systems Constitutional: reports: No Symptoms Eyes: reports: No Symptoms HENT: reports: No Symptoms Neck: reports: No Symptoms Cardiovascular: reports: No Symptoms Respiratory: reports: No Symptoms Gastrointestinal: reports: No Symptoms Genitourinary: reports: No Symptoms Breasts: reports: No Symptoms Reported Musculoskeletal: reports: No Symptoms Integumentary: reports: No Symptoms Neurological: reports: No Symptoms Endocrine: reports: No Symptoms Hematology/Lymphatic: reports: No Symptoms Psychiatric: reports: No Symptoms Pain Intensity: 0 Physical Exam - Maternity Vital Signs: Vital Signs Temperature 98.1 F 10/21/19 07:25 Pulse Rate 108 H 10/21/19 07:25 Respiratory Rate 17 10/21/19 07:25 Blood Pressure 134/88 10/21/19 07:25 O2 Sat by Pulse Oximetry (%) Constitutional: Yes: Well Nourished, No Distress, Calm Eyes: Yes: WNL, Conjunctiva Clear HENT: Yes: WNL, Atraumatic, Normocephalic Neck: Yes: WNL, Supple, Trachea Midline Cardiovascular: Yes: WNL, Regular Rate and Rhythm Lungs: Clear to auscultation Breast(s): Yes: WNL - Abdominal Exam/OB Fundal Height: 39 Number of Fetuses: Single Presentation: Vertex Contractions: Yes Regularity: Irregular Intensity: Mild Monitor Mode: External Heart Rate (range): 140 Heart Rate Location: Midline Category: I Accelerations: Uniform Decelerations: None - Vaginal Exam/OB Vaginal Bleediing: No Speculum Exam: No Dilatation (cm): closed Effacement (%): long Amniotic Membrane Status: Intact Presentation: Vertex/Position Station: -3 - Physical Exam Musculoskeletal: Yes: WNL Extremities: Yes: WNL Edema: No Integumentary: Yes: WNL Deep Tendon Reflex Grade: Normal +2 ...Motor Strength: WNL Psychiatric: Yes: WNL, Alert, Oriented Assessment/Plan 29yo P2 @ 39.3wks with two prior c/sections for repeat c/section, placenta fundal Admit to L&D NPO, IVF Anesthesia and Neonatology aware risk of internal organ injury discussed Risk of labor - 4% risk of uterine rupture discussed All questions answered Will proceed with repeat c/section
[2019-10-21] MEDS ORDERED: DEXTROSE 5%-LACTATED RINGERS 1,000 ML IV SCH (08:45)
[2019-10-21] MEDS ORDERED: morphine SULFATE/PF 0.5 MG/ML (2cc Syringe - QUVA) ONE (08:45)
[2019-10-21] MEDS ORDERED: CLINDAMYCIN PHOSPHATE 600 MG/4 ML VIAL ONE (09:03)
[2019-10-21] MEDS ORDERED: CEFAZOLIN 1 GM/D5W 50 ML IVPB SCH (10:00)
[2019-10-21] MEDS: OXYTOCIN 20 UNITS in 0.9% NS 20 UNIT/1,000 ML INFUS.BAG IV SCH ×2 (10:15→18:26)
[2019-10-21] MEDS ORDERED: OXYTOCIN 20 UNITS in 0.9% NS 20 UNIT/1,000 ML INFUS.BAG IV ONE (10:19)
--- NOTE | 2019-10-21 10:50 | OP ---
Operative Note - Note: Operative Date: 10/21/19 Pre-Operative Diagnosis: 29yo P2 @ 39.4wks for second repeat c/section Operation: LST # 3 c/section Findings: Scar tissue normal bl tubes and ovaries viable female, APGARs 9/9, wt 6.11lb Post-Operative Diagnosis: Same as Pre-op Surgeon: Verenice Sumner Securities Compliance Examiner: Jeri Schmitt Anesthesiologist/HEALTH UNDERWRITER: Hill Johnson Anesthesia: Spinal Specimens Removed: Placenta Estimated Blood Loss (mls): 500 Drains, Volume Out (mls): 500 Fluid Volume Replaced (mls): 1,500 Operative Report Dictated: Yes
[2019-10-21] MEDS ORDERED: ONDANSETRON 4 MG/2 ML VIAL IVPUSH PRN (10:52)
--- NOTE | 2019-10-21 11:03 | PN ---
Delivery - Delivery Section: Repeat, Low Flap Transverse Type of Anesthesia: Spinal EBL (cc): 500 Delivery, Single - Stages of Labor Date of Delivery: 10/21/19 Time of Delivery: 09:41 Date Placenta Delivered: 10/21/19 Time Placenta Delivered: :42 Placenta: Yes: Expressed - Condition of Infant Manager Of Hospital/Livestock Farmer Present: Yes Name: Dequan Barahona Infant Gender: Female Weight: 6 lb 11 oz Position: Left, OT Total Hours ROM (Hrs/Mins): 2 minutes - 1 Minute Total Score: 9 5 Minutes Total Score: 9 - [place] Feeding Plan Initial Plan: Elected not to breastfeed exclusively throughout hospitalization Remarks - Remarks Remarks: Multiple adhesions noted Omental adhesions to anterior abdominal wall All layers closed
[2019-10-21] MEDS: ENOXAPARIN NA (PORCINE) 40 MG/0.4 ML DISP.SYRIN SQ SCH (11:24)
--- NOTE | 2019-10-21 11:28 | SURG ---
Surgery Correspondence Representative Note Correspondence Representative: Jeri Schmitt PA-C Date of Service: 10/21/19 Diagnosis: 29yo P2 @ 39.4wks for second repeat c/section Procedure: LST # 3 c/section I was present for the entirety of the operative procedure. For further detail, please refer to operative report. Visit type - Case Type Case Type: Scheduled - Emergency Emergency Visit: No - New patient This patient is new to me today: Yes Date on this admission: 10/21/19
[2019-10-21] MEDS ORDERED: METHYLDOPA 250 MG TABLET PO ONE ×3 (11:30→22:00)
[2019-10-21] MEDS ORDERED: IBUPROFEN 800 MG/8 ML IJ IVPB ONE (11:38)
[2019-10-21] MEDS: IBUPROFEN 800 MG/8 ML IJ IVPB PRN ×2 (11:43→23:20)
[2019-10-21] MEDS: CLINDAMYCIN 600MG PREMIX IVPB 600 MG/50 ML BAG IVPB SCH ×2 (14:25→21:53)
[2019-10-21] MEDS: CLOTRIMAZOLE 1% CREAM 15 GM TUBE TP SCH (21:54)
[2019-10-22] MEDS: CLINDAMYCIN 600MG PREMIX IVPB 600 MG/50 ML BAG IVPB SCH ×2 (03:25→11:39)
[2019-10-22 08:15] LABS: BASO % 0.3 % (0-2.0); EOS % 0.3 % (0-4.5); HEMATOCRIT 29.9 % (32.4-45.2); HEMOGLOBIN 10.6 GM/dL (10.7-15.3); LYMPH % 18.6 % (8-40); MCH 30.7 pg (25.7-33.7); MCHC 35.7 g/dl (32.0-36.0); MEAN PLT VOLUME 9.6 fl (7.5-11.1); MONO % 7.4 % (3.8-10.2); NEUT % 73.4 % (42.8-82.8); PLATELET COUNT 166 K/MM3 (134-434); RBC 3.47 M/mm3 (3.60-5.2); RDW 15.2 % (11.6-15.6); WHITE BLOOD COUNT 10.3 K/mm3 (4.0-10.0)
[2019-10-22] MEDS ORDERED: BISACODYL 10 MG SUPP.RECT RC PRN (08:33)
[2019-10-22] MEDS: oxyCODONE HCL 5 MG TABLET PO PRN ×3 (08:48→22:14)
[2019-10-22] MEDS: SIMETHICONE 80 MG TAB.CHEW (FP) PO PRN ×3 (08:48→22:14)
[2019-10-22] MEDS: IBUPROFEN 600 MG TABLET (FP) PO PRN ×3 (08:48→22:15)
[2019-10-22] MEDS: CLOTRIMAZOLE 1% CREAM 15 GM TUBE TP SCH ×2 (11:39→22:21)
[2019-10-22] MEDS: ENOXAPARIN NA (PORCINE) 40 MG/0.4 ML DISP.SYRIN SQ SCH (11:40)
[2019-10-22] MEDS: METHYLDOPA 250 MG TABLET PO SCH ×2 (11:40→22:11)
--- NOTE | 2019-10-22 16:03 | PN ---
Post Progress Note - Subjective Subjective: Patient without acute complaints. Reports tolerating oral intake without nausea or vomiting. Ambulating without dizziness. Denies fevers or chills. Pain well controlled with oral pain medication. Pumping/breast feeding without issue. No flatus, no BM yet. Post Day: 1 Type of Delivery: Repeat C/S Vital Signs: Vital Signs Temperature 98.0 F 10/22/19 14:00 Pulse Rate 105 H 10/22/19 14:00 Respiratory Rate 10/22/19 14:00 Blood Pressure 108/57 L 10/22/19 14:00 O2 Sat by Pulse Oximetry (%) 100 10/21/19 11:30 Breast Exam: Yes: Soft Uterus: Yes: Fundus Firm, Fundus below umbilicus, Non-tender Abdomen/GI: Yes: Abdomen soft, Passing flatus, Tolerating PO Lochia: Yes: Rubra Lochia, amount: Small Extremities: Yes: Calves non-tender Perineum: Yes: Intact Activity: Ambulating - Labs Labs: CBC WBC 10.3 K/mm3 (4.0-10.0) H 10/22/19 07:55 RBC 3.47 M/mm3 (3.60-5.2) L 10/22/19 07:55 Hgb 10.6 GM/dL (10.7-15.3) L 10/22/19 07:55 Hct 29.9 % (32.4-45.2) L D 10/22/19 07:55 MCV 86.0 fl (80-96) 10/22/19 07:55 MCH 30.7 pg (25.7-33.7) 10/22/19 07:55 MCHC 35.7 g/dl (32.0-36.0) 10/22/19 07:55 RDW 15.2 % (11.6-15.6) 10/22/19 07:55 Plt Count 166 K/MM3 (134-434) 10/22/19 07:55 MPV 9.6 fl (7.5-11.1) 10/22/19 07:55 Absolute Neuts (auto) 7.6 K/mm3 (1.5-8.0) 10/22/19 07:55 Neutrophils % 73.4 % (42.8-82.8) D 10/22/19 07:55 Lymphocytes % 18.6 % (8-40) D 10/22/19 07:55 Monocytes % 7.4 % (3.8-10.2) 10/22/19 07:55 Eosinophils % 0.3 % (0-4.5) 10/22/19 07:55 Basophils % 0.3 % (0-2.0) 10/22/19 07:55 Nucleated RBC % 0 % (0-0) 10/22/19 07:55 Assessment/Plan 29yo s/p repeat LT C/S, doing well stable, afebrile. The pt is asymptomatic for s/sxs of anemia. care instructions reviewed. Continue routine postop care. Ambulation encouraged.
--- NOTE | 2019-10-23 09:20 | PN ---
Post Progress Note - Subjective Subjective: Patient without acute complaints. Reports tolerating oral intake without nausea or vomiting. Ambulating without dizziness. Denies fevers or chills. Pain well controlled with oral pain medication. with supplementation Passing flatus. Post Day: 2 Type of Delivery: Repeat C/S Vital Signs: Vital Signs Temperature 98.4 F 10/23/19 09:00 Pulse Rate 97 H 10/23/19 09:00 Respiratory Rate 20 10/23/19 09:00 Blood Pressure 116/66 10/23/19 09:00 O2 Sat by Pulse Oximetry (%) 100 10/21/19 11:30 Breast Exam: Yes: Soft Uterus: Yes: Fundus Firm Incision: Yes: Sutures intact. No: Redness, Oozing Abdomen/GI: Yes: Abdomen soft, Tender (mild incisional tenderness), Passing flatus, Tolerating PO. No: Abdominal Distention Lochia: Yes: Rubra Lochia, amount: Small Extremities: Yes: Calves non-tender, Edema (trace) Activity: Ambulating - Labs Labs: CBC WBC 10.3 K/mm3 (4.0-10.0) H 10/22/19 07:55 RBC 3.47 M/mm3 (3.60-5.2) L 10/22/19 07:55 Hgb 10.6 GM/dL (10.7-15.3) L 10/22/19 07:55 Hct 29.9 % (32.4-45.2) L D 10/22/19 07:55 MCV 86.0 fl (80-96) 10/22/19 07:55 MCH 30.7 pg (25.7-33.7) 10/22/19 07:55 MCHC 35.7 g/dl (32.0-36.0) 10/22/19 07:55 RDW 15.2 % (11.6-15.6) 10/22/19 07:55 Plt Count 166 K/MM3 (134-434) 10/22/19 07:55 MPV 9.6 fl (7.5-11.1) 10/22/19 07:55 Absolute Neuts (auto) 7.6 K/mm3 (1.5-8.0) 10/22/19 07:55 Neutrophils % 73.4 % (42.8-82.8) D 10/22/19 07:55 Lymphocytes % 18.6 % (8-40) D 10/22/19 07:55 Monocytes % 7.4 % (3.8-10.2) 10/22/19 07:55 Eosinophils % 0.3 % (0-4.5) 10/22/19 07:55 Basophils % 0.3 % (0-2.0) 10/22/19 07:55 Nucleated RBC % 0 % (0-0) 10/22/19 07:55 Assessment/Plan 29 yo POD # 2 sp R CD, afebrile, vital signs stable, mild asymptomatic anemia, doing well 1. Continue routine postoperative care. 2. Encourage ambulation and incentive spirometer use 3. Continue oral pain medication 4. Anticipate discharge home postoperative day #3
[2019-10-23] MEDS: ENOXAPARIN NA (PORCINE) 40 MG/0.4 ML DISP.SYRIN SQ SCH (09:21)
[2019-10-23] MEDS: METHYLDOPA 250 MG TABLET PO SCH ×2 (09:21→21:25)
[2019-10-23] MEDS: oxyCODONE HCL 5 MG TABLET PO PRN (09:30)
[2019-10-23] MEDS: SIMETHICONE 80 MG TAB.CHEW (FP) PO PRN ×2 (09:30→21:25)
[2019-10-23] MEDS: IBUPROFEN 600 MG TABLET (FP) PO PRN ×2 (09:31→21:24)
[2019-10-23] MEDS: CLOTRIMAZOLE 1% CREAM 15 GM TUBE TP SCH ×2 (09:52→22:09)
--- NOTE | 2019-10-23 15:40 | PATH ---
Surgical Pathology Report Patient Name: NIKOLAS CUMMINS Med. Rec. #: [id number] /Age/Gender: 1990 (Age: 29) / F Account: [id number] Location: [facility] OBS/BROADCAST SUPERVISOR Taken: 10/21/2019 Received: 10/22/2019 Reported: 10/23/2019 Physicians: Verenice Sumner M.D. Specimen(s) Received PLACENTA Clinical History , term 1, 1, 2016 at 28 weeks for placental abruption, repeat 2019, history of cervical polyp Final Diagnosis PLACENTA: THIRD TRIMESTER PLACENTA WITH FOCAL SQUAMOUS METAPLASIA OF AMNION. TRIVASCULAR CORD. MEMBRANES WITH NO ACUTE INFLAMMATION. Electronically Signed Ahmet Castillo M.D. Gross Description The specimen is received fresh labeled placenta and is a 535 gram, 13.5 x 15.5 x 3.0 cm. placenta with attached membranes and umbilical cord. The attached membranes are santiago, translucent with focal opacities and insert marginally. The umbilical cord measures 25 cm. in length and averages 0.9 cm. in diameter. The cord inserts eccentrically, 3 cm. to the nearest margin. No true knots or strictures are identified. Cut surface of the umbilical cord reveals 3 vessels. The surface is garcia-blue with minimal fibrin deposition and appropriate caliber vessels. The maternal surface is red-brown and intact. Sectioning reveals red-brown, spongy parenchyma. No lesions are identified. City Planning Engineer sections are submitted in three cassettes as follows: 1- membrane rolls and umbilical cord; 2-3- full thickness sections of placenta. /10/22/2019 formerly [facility]/10/22/2019
[2019-10-23] MEDS ORDERED: SENNOSIDES/DOCUSATE COMBO (SENNA PLUS) TABLET (UD) PO PRN (22:00)
--- NOTE | 2019-10-24 07:40 | DS ---
Physical Exam-BENZOL OPERATOR Vital Signs: Vital Signs Temperature 97.8 F 10/24/19 06:00 Pulse Rate 98 H 10/24/19 06:00 Respiratory Rate 19 10/24/19 06:00 Blood Pressure 131/82 10/24/19 06:00 O2 Sat by Pulse Oximetry (%) 100 10/21/19 11:30 Constitutional: Yes: Well Nourished, No Distress, Calm Eyes: Yes: WNL, Conjunctiva Clear, EOM Intact HENT: Yes: WNL, Atraumatic, Normocephalic Neck: Yes: WNL, Supple, Trachea Midline Cardiovascular: Yes: WNL, Regular Rate and Rhythm Respiratory: Yes: WNL, Regular, CTA Bilaterally Gastrointestinal: Yes: WNL ...Rectal Exam: Yes: WNL Renal/: Yes: WNL ....Post : Yes: Uterus firm, Uterus non-tender, Slight lochia rubra Breast(s): Yes: WNL Musculoskeletal: Yes: WNL Extremities: Yes: WNL Edema: Yes Edema: LLE: Trace, RLE: Trace Integumentary: Yes: WNL Wound/Incision: Yes: Clean/Dry, Well Approximated, Sutures Intact, Steri Strips Neurological: Yes: WNL, Alert, Oriented ...Motor Strength: WNL Psychiatric: Yes: WNL, Alert, Oriented Labs: CBC, BMP 10/22/19 07:55 Delivery - Delivery Section: Repeat, Low Flap Transverse Type of Anesthesia: Spinal EBL (cc): 500 Delivery, Single - Stages of Labor Date of Delivery: 10/21/19 Time of Delivery: 09:41 Time Placenta Delivered: 09:42 Placenta: Yes: Expressed - Condition of Infant Nurse/Senior Staff Consultant Present: Yes Name: Dequan Barahona Infant Gender: Female Weight: 6 lb 11 oz Position: Left, OT Total Hours ROM (Hrs/Mins): 2 minutes - 1 Minute Total Score: 9 5 Minutes Total Score: 9 - Feeding Plan Initial Plan: Elected not to breastfeed exclusively throughout hospitalization Discharge Summary Problems reviewed: Yes Reason For Visit: ADMIT CSECTION Current Active Problems Anemia (Acute) delivery delivered (Acute) Procedures: Principal: repeat LST c/s Other Procedures: none Hospital Course: no complication Health Concerns: HTN Plan of Treatment: monitor BP, wt loss, exercise follow up with PCP for monitoring BP Condition: Good - Instructions Diet, Activity, Other Instructions: Follow up in 1 week for incision check Follow up in 4-6 weeks for visit Physical activity Resume your normal everyday activity as tolerated no heavy lifting or exercise until seen by your surgeon. You may walk unlimited jimenez of and climb stairs. You may resume driving the car when you feel safe and comfortable behind the wheel. No sexual activity as instructed. Wound care If you have a bandage, leave it on, and keep dry for 48-72 hours. After that time discard the outer bandage. If they are tapes on the skin under the out of bandage leave them in place. They will peel off in the next 7 to 10 days. Do Not Peel them off. You may shower the day after surgery. If there are tapes present on the skin, you may shower over them. Diet There are no dietary restrictions. Eat healthy, high-fiber foods. Drink 6 to 8 glasses of liquid each day. This will assist in keeping your bowels are regular. Pain management You may take Tylenol or acetaminophen or Ibuprofen (for example, Motrin, Advil etc.) from my pain prescription medication is ordered should be taken as prescribed for moderate to severe pain. Call MD for any of the following: Severe pain not relieved by medication Fever of 101 or higher Excessive bleeding or drainage on dressing Inability to urinate Referrals: Verenice Sumner MD [Staff Physician] - Disposition: HOME - Home Medications Comprehensive Discharge Medication List: Ambulatory Orders Vit/Iron Fum/Folic AC [ Tablet] 1 tablet PO DAILY 10/16/17 Methyldopa [Aldomet -] 250 mg PO DAILY 10/20/19 Methyldopa 500 mg PO DAILY 10/21/19
[2019-10-24 08:49] LABS: BASO % 0.3 % (0-2.0); EOS % 2.4 % (0-4.5); HEMOGLOBIN 10.8 GM/dL (10.7-15.3); LYMPH % 24.1 % (8-40); MCH 30.2 pg (25.7-33.7); MEAN CELL VOLUME 86.3 fl (80-96); MEAN PLT VOLUME 9.7 fl (7.5-11.1); MONO % 5.8 % (3.8-10.2); NEUT % 67.4 % (42.8-82.8); PLATELET COUNT 200 K/MM3 (134-434); RDW 15.1 % (11.6-15.6); WHITE BLOOD COUNT 10.9 K/mm3 (4.0-10.0)
[2019-10-24 08:51] VITALS: BP 136/79; PULSE 96; TEMP 98.3
[2019-10-24] MEDS: ENOXAPARIN NA (PORCINE) 40 MG/0.4 ML DISP.SYRIN SQ SCH (09:06)
[2019-10-24] MEDS: METHYLDOPA 250 MG TABLET PO SCH (09:39)
[2019-10-24] MEDS: IBUPROFEN 600 MG TABLET (FP) PO PRN (09:40)
[2019-10-24] MEDS: SIMETHICONE 80 MG TAB.CHEW (FP) PO PRN (09:41)
[2019-10-24] MEDS: CLOTRIMAZOLE 1% CREAM 15 GM TUBE TP SCH (09:42)
--- NOTE | 2019-10-26 20:35 | OP ---
DATE OF OPERATION: DATE OF DICTATION: 10/26/2019 PREOPERATIVE DIAGNOSIS: A 29-year-old, para 2, at 39-4/7 weeks, for repeat section. OPERATION: Lower segment transverse repeat section. POSTOPERATIVE DIAGNOSIS: A 29-year-old, para 2, at 39-4/7 weeks, for repeat section. FINDINGS: Significant scar tissue, omental adhesions to anterior abdominal wall, normal bilateral tubes and ovaries. Viable female, Apgars 9 and 9, weight 6 pounds 11 ounces. SURGEON: Verenice Sumner MD WOOD ROOM SUPERVISOR: SALBADOR Benítez ANESTHESIOLOGIST: Hill Johnson MD ANESTHESIA: Spinal. DESCRIPTION OF THE OPERATIVE PROCEDURE: After ensuring informed consent, patient was brought to the operating room, where spinal anesthesia was administered and the patient was placed in dorsal supine position with left lateral tilt. After ensuring adequate anesthesia and timeout was completed, Pfannenstiel skin incision was created with scalpel and carried down to the level of fascia with Bovie cautery. Fascia was dissected bilaterally with Bovie cautery, with good visualization of underlying layers. Fascia was dissected off superiorly and inferiorly. Muscle was split in the midline. Peritoneum was identified, tented with Gema clamps, and entered with Metzenbaum scissors. Peritoneal incision was extended superiorly and inferiorly, with good visualization of underlying structures. Vesicouterine peritoneum was identified and bladder flap was created with Metzenbaum scissors. The bladder was retracted with lower edge of the [place]. The lower segment transverse incision on the uterus was created with scalpel and extended bilaterally with bandage scissors. Infant's head was identified in a ROT position, delivered without any difficulty, head and shoulders. The rest of the 's body was delivered as well without any difficulty. Mouth was suctioned. The cord was clamped x2, handed to awaiting sewage plant supervisor. Placenta was expressed. Uterus was cleared of clots and debris. The cervix was opened with a ring forceps. Uterus was closed with a 0 Biosyn in running fashion and a 2nd imbricating layer was created with 0 Biosyn. Gutters previously were packed with lap sponges, which were then removed and abdomen was copiously irrigated. Excellent hemostasis was noted. Uterus was contracted well. Peritoneum was repaired with 0 Biosyn, muscle was reapproximated at the midline with 0 Biosyn. Fascia was repaired with 0 Vicryl, subcutaneous defect was closed with 0 Vicryl and skin was closed with 4-0 Vicryl with a V-Loc stitch. Excellent hemostasis throughout. Estimated blood loss: 500 mL. The patient received 1500 mL of IV fluids and drained 500 mL of urine. Sponge and instrument count was correct twice. The patient was brought to the recovery room in stable condition. Daysi CALLAWAY/[id number]
== END 2019-10-24 14:25 | disposition home or self-care (01) | DRG 540 ==
LOC: JLDR 07:25 → J3W 12:07
PROVIDERS: ADMIT Obstetrics & Gynecology; ATTEND Obstetrics & Gynecology
PROC: 10D00Z1 Extraction of Products of Conception, Low, Open Approach (ICD-10-PCS; principal; 2019-10-21)
DX: O34.211 Maternal care for low transverse scar from previous cesarean delivery (principal); N85.8 Other specified noninflammatory disorders of uterus; O10.92 Unspecified pre-existing hypertension complicating childbirth; O99.02 Anemia complicating childbirth; Z3A.39 39 weeks gestation of pregnancy; Z37.0 Single live birth
CPT/HCPCS: 36415; 36600; 82803; 85025

== ENCOUNTER 2021-08-18 18:06 | Inpatient (IN) | payer OTHER ==
[2021-08-18] MEDS ORDERED: ELECTROLYTE-148 SOLN 1,000 ML IV ONE (18:45)
[2021-08-18 19:06] LABS: RETICULOCYTES 2.87 % (0.5-1.5)
[2021-08-18 19:28] LABS: URIC ACID 4.5 mg/dL (2.6-7.2)
[2021-08-18] MEDS ORDERED: LABETALOL HCL 200 MG TABLET (FP) PO ONE (20:45)
[2021-08-18] MEDS ORDERED: ACETAMINOPHEN 325 MG TABLET (FP) PO PRN (22:50)
[2021-08-19 01:05] LABS: BASO % 0.3 % (0-2.0); EOS % 0.6 % (0-4.5); HEMATOCRIT 33.3 % (32.4-45.2); HEMOGLOBIN 11.9 GM/dL (10.7-15.3); LYMPH % 35.8 % (8-40); MCH 30.4 pg (25.7-33.7); MCHC 35.6 g/dl (32.0-36.0); MEAN CELL VOLUME 85.3 fl (80-96); MEAN PLT VOLUME 9.6 fl (7.5-11.1); MONO % 6.1 % (3.8-10.2); NEUT % 57.2 % (42.8-82.8); PLATELET COUNT 166 10^3/uL (134-434); RBC 3.91 M/mm3 (3.60-5.2); RDW 14.7 % (11.6-15.6); WHITE BLOOD COUNT 8.5 K/mm3 (4.0-10.0)
[2021-08-19 01:23] LABS: ALBUMIN 2.8 g/dl (3.4-5.0); BLOOD UREA NITROGEN 7.2 mg/dL (7-18); CALCIUM 8.7 mg/dL (8.5-10.1)
[2021-08-19 01:27] LABS: CREATININE 0.6 mg/dL (0.55-1.3)
[2021-08-19 01:28] LABS: BILIRUBIN,TOTAL 0.8 mg/dL (0.2-1); TOT PROT 6.6 g/dl (6.4-8.2)
[2021-08-19 01:31] LABS: INR 1.01 (0.83-1.09); PROTHROMBIN TIME (PATIENT) 11.8 SEC (9.7-13.0)
[2021-08-19 01:34] LABS: ACTIVATED PTT 29.3 SECONDS (25.2-36.5)
[2021-08-19 05:24] LABS: HIV INTERPRETATION NEGATIVE (NEGATIVE)
[2021-08-19 09:46] VITALS: BMI 31.8
[2021-08-19] MEDS ORDERED: LABETALOL HCL 200 MG TABLET (FP) ONE (12:52)
[2021-08-19] MEDS: LABETALOL HCL 200 MG TABLET (FP) PO SCH ×2 (12:56→21:49)
[2021-08-19] MEDS ORDERED: METHYLERGONOVINE MALEATE 0.2 MG/1 ML AMP IM PRN (17:46)
[2021-08-19] MEDS ORDERED: ePHEDrine SULFATE 50 MG/1 ML AMPULE ONE (17:51)
[2021-08-19] MEDS ORDERED: morphine SULFATE (PF) 1 MG/2 ML SYRINGE ONE (17:51)
[2021-08-19] MEDS ORDERED: PHENYLEPHRINE HCL 10 MG/1 ML SINGLE DOSE VIAL ONE (17:51)
[2021-08-19] MEDS ORDERED: CLINDAMYCIN PHOSPHATE 600 MG/4 ML VIAL ONE (18:06)
[2021-08-19] MEDS ORDERED: ceFAZolin SODIUM 1 GM VIAL ONE ×2 (18:08→18:27)
[2021-08-19] MEDS ORDERED: ONDANSETRON 4 MG/2 ML VIAL ONE (18:27)
[2021-08-19 19:26] LABS: CORD BASE EXCESS -4.3 mmol/L (0-2); CORD HCO3 20.7 mmHg (20-29); CORD PCO2 38.2 mmHg (30-78); CORD pH 7.352 (7.14-7.44)
[2021-08-19 19:27] LABS: CORD BASE EXCESS -3.7 mmol/L (0-2); CORD HCO3 23.2 mmHg (20-29); CORD PCO2 48.8 mmHg (30-78); CORD pH 7.294 (7.14-7.44)
[2021-08-19] MEDS: OXYTOCIN 20 UNITS in 0.9% NS 20 UNIT/1,000 ML INFUS.BAG IV SCH (19:43)
[2021-08-19] MEDS: CEFAZOLIN 1 GM in DEXTROSE 5%-WATER - 1 GM/50 ML IVPB IVPB SCH (20:04)
[2021-08-19] MEDS ORDERED: ONDANSETRON 4 MG/2 ML VIAL IVPUSH PRN (20:06)
[2021-08-19] MEDS ORDERED: IBUPROFEN 600 MG TABLET (FP) PO ONE (20:39)
[2021-08-19] MEDS ORDERED: ACETAMINOPHEN 325 MG TABLET (FP) ONE (20:39)
[2021-08-19] MEDS: IBUPROFEN 600 MG TABLET (FP) PO PRN (20:40)
[2021-08-19] MEDS: ACETAMINOPHEN 325 MG TABLET (FP) PO PRN (20:40)
[2021-08-20] MEDS ORDERED: DEXTROSE 5%-WATER - 50 ML IVPB ONE ×2 (01:47→10:05)
[2021-08-20] MEDS ORDERED: ceFAZolin SODIUM 1 GM VIAL ONE ×2 (01:47→10:05)
[2021-08-20] MEDS: CEFAZOLIN 1 GM in DEXTROSE 5%-WATER - 1 GM/50 ML IVPB IVPB SCH ×2 (01:52→10:08)
[2021-08-20] MEDS ORDERED: oxyCODONE HCL 5 MG TABLET PO PRN ×2 (05:46)
[2021-08-20 07:25] LABS: BASO % 0.5 % (0-2.0); EOS % 0.4 % (0-4.5); HEMATOCRIT 26.9 % (32.4-45.2); HEMOGLOBIN 9.5 GM/dL (10.7-15.3); MCH 30.7 pg (25.7-33.7); MCHC 35.3 g/dl (32.0-36.0); MEAN PLT VOLUME 9.8 fl (7.5-11.1); MONO % 8.5 % (3.8-10.2); NEUT % 70.6 % (42.8-82.8); PLATELET COUNT 144 10^3/uL (134-434); RBC 3.09 M/mm3 (3.60-5.2); RDW 14.6 % (11.6-15.6); WHITE BLOOD COUNT 9.8 K/mm3 (4.0-10.0)
[2021-08-20] MEDS: IBUPROFEN 600 MG TABLET (FP) PO PRN ×3 (07:47→23:38)
[2021-08-20] MEDS: SIMETHICONE 80 MG TAB.CHEW (FP) PO PRN ×3 (07:48→23:39)
[2021-08-20] MEDS: ACETAMINOPHEN 325 MG TABLET (FP) PO PRN ×3 (07:48→23:39)
[2021-08-20] MEDS: ENOXAPARIN NA (PORCINE) 40 MG/0.4 ML DISP.SYRIN SQ SCH (10:08)
[2021-08-20] MEDS: LABETALOL HCL 200 MG TABLET (FP) PO SCH ×2 (10:09→22:13)
[2021-08-20] MEDS ORDERED: BISACODYL 10 MG SUPP.RECT RC PRN (17:46)
[2021-08-20] MEDS: OXYTOCIN 20 UNITS in 0.9% NS 20 UNIT/1,000 ML INFUS.BAG IV SCH (23:53)
[2021-08-21] MEDS: SIMETHICONE 80 MG TAB.CHEW (FP) PO PRN ×4 (09:04→23:01)
[2021-08-21] MEDS: ENOXAPARIN NA (PORCINE) 40 MG/0.4 ML DISP.SYRIN SQ SCH (09:04)
[2021-08-21] MEDS: IBUPROFEN 600 MG TABLET (FP) PO PRN ×4 (09:04→23:01)
[2021-08-21] MEDS: LABETALOL HCL 200 MG TABLET (FP) PO SCH ×2 (09:05→21:09)
[2021-08-21] MEDS: ACETAMINOPHEN 325 MG TABLET (FP) PO PRN (23:01)
[2021-08-22] MEDS: ACETAMINOPHEN 325 MG TABLET (FP) PO PRN (03:10)
[2021-08-22] MEDS: IBUPROFEN 600 MG TABLET (FP) PO PRN ×2 (03:10→12:15)
[2021-08-22] MEDS: SIMETHICONE 80 MG TAB.CHEW (FP) PO PRN ×2 (03:11→12:15)
[2021-08-22 06:54] LABS: BASO % 0.3 % (0-2.0); HEMATOCRIT 25.6 % (32.4-45.2); HEMOGLOBIN 8.8 GM/dL (10.7-15.3); MCH 29.9 pg (25.7-33.7); MCHC 34.6 g/dl (32.0-36.0); MEAN CELL VOLUME 86.6 fl (80-96); MEAN PLT VOLUME 9.5 fl (7.5-11.1); MONO % 7.6 % (3.8-10.2); NEUT % 65.1 % (42.8-82.8); PLATELET COUNT 171 10^3/uL (134-434); RBC 2.95 M/mm3 (3.60-5.2); RDW 14.9 % (11.6-15.6); WHITE BLOOD COUNT 12.7 K/mm3 (4.0-10.0)
[2021-08-22] MEDS: ENOXAPARIN NA (PORCINE) 40 MG/0.4 ML DISP.SYRIN SQ SCH (09:56)
[2021-08-22] MEDS: LABETALOL HCL 200 MG TABLET (FP) PO SCH (09:56)
[2021-08-22 10:01] VITALS: BP 127/85; PULSE 98; TEMP 98
== END 2021-08-22 13:00 | disposition home or self-care (01) | DRG 540 ==
LOC: JDEL 18:06 → JLDR 22:20 → J3W 08-19 21:12
PROVIDERS: ADMIT Obstetrics & Gynecology; ATTEND Obstetrics & Gynecology
PROC: 10D00Z1 Extraction of Products of Conception, Low, Open Approach (ICD-10-PCS; principal; 2021-08-19)
DX: O34.219 Maternal care for unspecified type scar from previous cesarean delivery (principal); O16.4 Unspecified maternal hypertension, complicating childbirth; O99.214 Obesity complicating childbirth; E66.9 Obesity, unspecified; O69.81X0 Labor and delivery complicated by cord around neck, without compression, not applicable or unspecified; Z3A.37 37 weeks gestation of pregnancy; Z37.0 Single live birth
CPT/HCPCS: 36415; 36600; 80053; 82570; 82803; 82977; 83010; 84156; 84450; 84460; 84550; 85025; 85032; 85045; 85610; 85730; 86762; 86780; 86850; 86900; 86901; 86922; 87389; 88307-TC; C9803; U0003; U0005

== ENCOUNTER 2021-08-28 18:14 | Inpatient (IN) | payer OTHER ==
[2021-08-28] MEDS ORDERED: LABETALOL HCL 5 MG/1 ML (100MG/20 ML VIAL) IVPUSH ONE ×2 (20:43→21:00)
[2021-08-28] MEDS ORDERED: LABETALOL HCL 5 MG/1 ML (100MG/20 ML VIAL) ONE (20:47)
[2021-08-28 21:08] LABS: BASO % 0.3 % (0-2.0); EOS % 2.6 % (0-4.5); HEMATOCRIT 29.5 % (32.4-45.2); HEMOGLOBIN 10.2 GM/dL (10.7-15.3); LYMPH % 31.4 % (8-40); MCH 29.3 pg (25.7-33.7); MCHC 34.5 g/dl (32.0-36.0); MEAN CELL VOLUME 84.8 fl (80-96); MONO % 6.9 % (3.8-10.2); NEUT % 58.8 % (42.8-82.8); PLATELET COUNT 365 10^3/uL (134-434); RBC 3.49 M/mm3 (3.60-5.2); RDW 14.6 % (11.6-15.6); WHITE BLOOD COUNT 10.5 K/mm3 (4.0-10.0)
[2021-08-28] MEDS ORDERED: LISINOPRIL 20 MG TABLET PO ONE (21:09)
[2021-08-28] MEDS ORDERED: HYDROCHLOROTHIAZIDE 50 MG TABLET PO ONE (21:09)
[2021-08-28] MEDS ORDERED: hydrALAZINE HCL 20 MG/ML VIAL IVPUSH ONE ×2 (21:10→21:30)
[2021-08-28] MEDS ORDERED: LISINOPRIL 20 MG TABLET ONE (21:11)
[2021-08-28] MEDS ORDERED: HYDROCHLOROTHIAZIDE 25 MG TABLET (FP) ONE (21:11)
[2021-08-28] MEDS ORDERED: hydrALAZINE HCL 20 MG/ML VIAL ONE ×3 (21:12→21:55)
[2021-08-28 21:18] LABS: CALCIUM 8.4 mg/dL (8.5-10.1); MAGNESIUM 1.9 mg/dL (1.8-2.4)
[2021-08-28 21:19] LABS: ALBUMIN 2.6 g/dl (3.4-5.0); BLOOD UREA NITROGEN 10.8 mg/dL (7-18)
[2021-08-28 21:21] LABS: CREATININE 0.6 mg/dL (0.55-1.3); URIC ACID 5.7 mg/dL (2.6-7.2)
[2021-08-28 21:22] LABS: PHOSPHOROUS 3.9 mg/dL (2.5-4.9)
[2021-08-28 21:23] LABS: TOT PROT 6.7 g/dl (6.4-8.2)
[2021-08-28 21:24] LABS: BILIRUBIN,TOTAL 0.4 mg/dL (0.2-1)
[2021-08-28 21:31] LABS: EPI CELLS 26 /uL (0-25.1); HYALINE CASTS 1 /uL (0-3.1); URINE APPEARANCE TURBID; URINE BILIRUBIN 1+ (NEGATIVE); URINE COLOR RED; URINE GLUCOSE (UA) NEGATIVE (NEGATIVE); URINE KETONE NEGATIVE (NEGATIVE); URINE LEUK ESTERASE 3+ (NEGATIVE); URINE NITRITE POSITIVE (NEGATIVE); URINE PROTEIN 3+ (NEGATIVE); URINE UROBILINOGEN 0.2 mg/dL (0.2-1.0); URINE WBC 1569 /uL (0-25.8)
[2021-08-28] MEDS ORDERED: SULFAMETHOXAZOLE/TRIMETHOPRIM 800MG/160MG D.S. TABLET PO ONE (22:00)
[2021-08-28] MEDS ORDERED: MAGNESIUM SULF 50% (8.12 MEQ/2 ML-1 GM VIAL) IVPB ONE (22:11)
[2021-08-28] MEDS ORDERED: ACETAMINOPHEN 325 MG TABLET (FP) PO ONE (22:13)
[2021-08-28] MEDS ORDERED: ACETAMINOPHEN 325 MG TABLET (FP) ONE (22:16)
[2021-08-28 22:22] LABS: URINE BACTERIA 7.8 /uL (0-1359); URINE CRYSTALS NONE SEEN /hpf; URINE RBC 4001.3 /uL (0-23.9); YEAST NONE SEEN (NEGATIVE)
[2021-08-28] MEDS ORDERED: SULFAMETHOXAZOLE/TRIMETHOPRIM 800MG/160MG D.S. TABLET ONE (22:23)
[2021-08-28] MEDS ORDERED: MAGNESIUM SULFATE IN WATER 2 GM/50 ML IVPB IVPB ONE (22:23)
[2021-08-28] MEDS ORDERED: MAGNESIUM SULFATE 20GM/500ML - 20 GM/500 ML INFUS.BAG IVPB SCH (22:45)
[2021-08-29] MEDS ORDERED: ACETAMINOPHEN 325 MG TABLET (FP) PO PRN (02:15)
[2021-08-29 03:06] VITALS: BMI 31.1
[2021-08-29] MEDS: IBUPROFEN 400 MG TABLET (FP) PO PRN ×2 (04:24→10:12)
[2021-08-29 07:47] LABS: BASO % 0.1 % (0-2.0); EOS % 1.7 % (0-4.5); HEMOGLOBIN 10.9 GM/dL (10.7-15.3); LYMPH % 20.9 % (8-40); MCHC 35.1 g/dl (32.0-36.0); MEAN CELL VOLUME 85.7 fl (80-96); MEAN PLT VOLUME 8.3 fl (7.5-11.1); MONO % 5.6 % (3.8-10.2); NEUT % 71.7 % (42.8-82.8); PLATELET COUNT 378 10^3/uL (134-434); RBC 3.62 M/mm3 (3.60-5.2); RDW 14.6 % (11.6-15.6); WHITE BLOOD COUNT 9.8 K/mm3 (4.0-10.0)
[2021-08-29 08:36] LABS: ALBUMIN 2.7 g/dl (3.4-5.0); BLOOD UREA NITROGEN 7.4 mg/dL (7-18); CALCIUM 8.2 mg/dL (8.5-10.1)
[2021-08-29 08:39] LABS: CREATININE 0.5 mg/dL (0.55-1.3); PHOSPHOROUS 4.3 mg/dL (2.5-4.9)
[2021-08-29 08:40] LABS: BILIRUBIN,TOTAL 0.5 mg/dL (0.2-1); TOT PROT 6.8 g/dl (6.4-8.2)
[2021-08-29] MEDS ORDERED: PT OWN MED DRAWER 7, Y5N ONE (09:32)
[2021-08-29] MEDS: ENOXAPARIN NA (PORCINE) 40 MG/0.4 ML DISP.SYRIN SQ SCH (10:15)
[2021-08-29] MEDS: LOSARTAN 50MG/HCTZ 12.5MG 1 TAB PO SCH (11:12)
[2021-08-29] MEDS ORDERED: LABETALOL HCL 200 MG TABLET (FP) PO PRN (11:30)
[2021-08-29] MEDS: MUPIROCIN 2% TOPICAL OINTMENT FOR DECOLONIZATION NS SCH ×2 (18:06→21:01)
[2021-08-29 19:36] LABS: CREATININE, URINE RANDOM 45.1 mg/dL (30-150)
[2021-08-29] MEDS ORDERED: CHLORHEXIDINE GLUCONATE 4% CLEANSER FOR DECOLONIZATION TP SCH (22:00)
[2021-08-30] MEDS: ENOXAPARIN NA (PORCINE) 40 MG/0.4 ML DISP.SYRIN SQ SCH (09:14)
[2021-08-30] MEDS: LOSARTAN 50MG/HCTZ 12.5MG 1 TAB PO SCH (09:14)
[2021-08-30] MEDS: MUPIROCIN 2% TOPICAL OINTMENT FOR DECOLONIZATION NS SCH (09:20)
[2021-08-30 14:45] VITALS: BP 129/94; PULSE 97; TEMP 98.5
== END 2021-08-30 14:51 | disposition home or self-care (01) | DRG 561 ==
LOC: JER 18:14 → JERBED 22:25 → JICU 08-29 01:40 → J3W 08-29 16:32
PROVIDERS: ADMIT Internal Medicine Pulmonary Disease; ATTEND Internal Medicine Pulmonary Disease
DX: O11.5 Pre-existing hypertension with pre-eclampsia, complicating the puerperium (principal); O86.20 Urinary tract infection following delivery, unspecified; I16.9 Hypertensive crisis, unspecified; O99.43 Diseases of the circulatory system complicating the puerperium; O23.40 Unspecified infection of urinary tract in pregnancy, unspecified trimester; R60.0 Localized edema; O16.5 Unspecified maternal hypertension, complicating the puerperium
CPT/HCPCS: 36415; 80053; 81003; 82570; 83615; 83735; 84100; 84156; 84550; 85025; 87086; 93005; 93010; 93306-TC; 99285-25; C9803; U0003; U0005

== ENCOUNTER 2023-03-13 17:21 | Emergency (ER) | payer OTHER ==
[2023-03-13 17:33] VITALS: TEMP 98; BMI 24.7
[2023-03-13] MEDS ORDERED: SODIUM CHLORIDE 1,000 ML IV STA (18:34)
[2023-03-13 19:05] LABS: BASO % 0.7 % (0-2.0); EOS % 0.8 % (0-4.5); HEMATOCRIT 38.9 % (32.4-45.2); HEMOGLOBIN 13.2 GM/dL (10.7-15.3); LYMPH % 31.9 % (8-40); MCH 28.9 pg (25.7-33.7); MEAN PLT VOLUME 9.6 fl (7.5-11.1); MONO % 5.8 % (3.8-10.2); NEUT % 60.8 % (42.8-82.8); PLATELET COUNT 266 10^3/uL (134-434); RBC 4.57 M/mm3 (3.60-5.2); RDW 13.7 % (11.6-15.6); WHITE BLOOD COUNT 8.2 K/mm3 (4.0-10.0)
[2023-03-13 19:09] LABS: PH,URINE 7.5 (5.0-8.0); URINE APPEARANCE CLEAR; URINE BILIRUBIN NEGATIVE (NEGATIVE); URINE COLOR YELLOW; URINE GLUCOSE (UA) NEGATIVE (NEGATIVE); URINE KETONE NEGATIVE (NEGATIVE); URINE LEUK ESTERASE NEGATIVE (NEGATIVE); URINE NITRITE NEGATIVE (NEGATIVE); URINE PROTEIN NEGATIVE (NEGATIVE); URINE UROBILINOGEN 0.2 mg/dL (0.2-1.0)
[2023-03-13] MEDS ORDERED: ALPRAZolam 1 MG TABLET PO ONE (19:16)
[2023-03-13 19:18] LABS: INR 1.14 (0.83-1.09); PROTHROMBIN TIME (PATIENT) 13.2 SEC (9.7-13.0)
[2023-03-13] MEDS ORDERED: SODIUM CHLORIDE 0.9% 500 ML INFUS.BAG IV ONE (19:18)
[2023-03-13 19:21] LABS: ACTIVATED PTT 32.9 SECONDS (25.2-36.5)
[2023-03-13] MEDS ORDERED: ALPRAZolam 0.25 MG TABLET ONE (19:34)
[2023-03-13 19:49] LABS: ALBUMIN 4.1 g/dl (3.4-5.0); BILIRUBIN,TOTAL 0.4 mg/dL (0.2-1); BLOOD UREA NITROGEN 10.4 mg/dL (7-18); CALCIUM 9.6 mg/dL (8.5-10.1); CREATININE 0.8 mg/dL (0.55-1.3); POTASSIUM 3.9 mmol/L (3.5-5.1)
[2023-03-13] MEDS ORDERED: LACTATED RINGERS SOLUTION 1000 ML INFUS.BAG IV ONE (20:45)
[2023-03-13 21:53] LABS: METHADONE, UR NEGATIVE (NEGATIVE); PHENCYCLIDINE,URINE NEGATIVE (NEGATIVE)
[2023-03-13 21:54] LABS: COCAINE, UR NEGATIVE (NEGATIVE); OPIATES, URI NEGATIVE (NEGATIVE)
[2023-03-13 21:57] LABS: URINE AMPHETAMINES NEGATIVE (NEGATIVE); URINE BARBITURATES NEGATIVE (NEGATIVE); URINE BENZODIAZEPINES NEGATIVE (NEGATIVE)
[2023-03-13 22:34] VITALS: BP 129/99; PULSE 90; RESP 18
== END 2023-03-13 22:34 | disposition home or self-care (01) ==
LOC: JER 17:21
PROC: 3E0337Z Introduction of Electrolytic and Water Balance Substance into Peripheral Vein, Percutaneous Approach (ICD-10-PCS; principal; 2023-03-13)
DX: R42 Dizziness and giddiness (principal); R00.2 Palpitations; R07.9 Chest pain, unspecified; R00.0 Tachycardia, unspecified
CPT/HCPCS: 36415; 71046-TC-FY; 80053; 80307; 81003; 84439; 84443; 84484; 84703; 85025; 85379; 85610; 85730; 87086; 93005; 93010; 99285-25

== ENCOUNTER 2023-11-01 10:01 | Emergency (ER) | payer OTHER ==
[2023-11-01 10:15] VITALS: BMI 23.6
[2023-11-01 11:40] LABS: VENOUS BASE EXCESS -1.8 mmol/L (-2-2); VENOUS O2 SATURATION 31.6 % (70-80); VENOUS PH 7.373 (7.310-7.410)
[2023-11-01 11:43] LABS: BASO % 0.9 % (0-2.0); HEMATOCRIT 40.5 % (32.4-45.2); HEMOGLOBIN 13.7 GM/dL (10.7-15.3); LYMPH % 33.7 % (8-40); MCH 29.3 pg (25.7-33.7); MCHC 33.9 g/dl (32.0-36.0); MEAN CELL VOLUME 86.4 fl (80-96); MEAN PLT VOLUME 9.1 fl (7.5-11.1); MONO % 6.2 % (3.8-10.2); NEUT % 58.2 % (42.8-82.8); PLATELET COUNT 266 10^3/uL (134-434); RBC 4.69 M/mm3 (3.60-5.2); RDW 13.7 % (11.6-15.6); WHITE BLOOD COUNT 6.1 K/mm3 (4.0-10.0)
[2023-11-01 11:55] LABS: POTASSIUM 3.9 mmol/L (3.5-5.1)
[2023-11-01 11:59] LABS: CALCIUM 9.4 mg/dL (8.5-10.1)
[2023-11-01 12:00] LABS: ALBUMIN 3.9 g/dl (3.4-5.0); CREATININE 0.8 mg/dL (0.55-1.3); MAGNESIUM 1.8 mg/dL (1.8-2.4)
[2023-11-01 12:02] LABS: BILIRUBIN,TOTAL 0.6 mg/dL (0.2-1); TOT PROT 8.1 g/dl (6.4-8.2)
[2023-11-01] MEDS ORDERED: LACTATED RINGERS SOLUTION 1000 ML INFUS.BAG IV ONE (12:33)
[2023-11-01 15:08] VITALS: BP 142/91; PULSE 102; RESP 16; TEMP 98.4
== END 2023-11-01 15:08 | disposition home or self-care (01) ==
LOC: JER 10:01
DX: R00.2 Palpitations (principal); R35.0 Frequency of micturition; Z20.822 Contact with and (suspected) exposure to COVID-19
CPT/HCPCS: 0241U-QW; 36415; 71045-TC-FY; 80053; 82803; 83735; 84439; 84443; 84484; 84703; 85025; 85379; 93005; 93010; 99285-25